=== PATIENT | male | born 1975 | race Caucasian/White ===

== ENCOUNTER 2021-05-03 13:59 | Emergency (ER) | payer OTHER ==
[~2021-05-03] VITALS: Ht 172.7 cm; Wt 113.6 kg
[2021-05-03 14:17] VITALS: BP 106/72
[2021-05-03] MEDS ORDERED: KETOROLAC 30 MG/ML VIAL IM ONE (14:35)
--- NOTE | 2021-05-03 14:47 | NUR ---
Cielo swab collected and sent back to lobby to wait for results.
[2021-05-03] MEDS ORDERED: NAPR-54 PO (15:19)
--- NOTE | 2021-05-03 15:20 | NUR ---
Charity ferris in ED - 05/03/21 at 1709 by [email or web address] NO NURSING INTERVENTIONS PROVIDED. PT SEEN AND DISCHARGED BY BETHEL EDE.
[2021-05-03 15:25] VITALS: BP 106/72
--- NOTE | 2021-05-03 15:25 | NUR ---
Patient discharged with v/s stable. Written and verbal after care instructions ABOUT MEDICATION AND TENSION HEADACHE given and explained. Patient alert, oriented and verbalized understanding of instructions. Ambulatory with steady gait. All questions addressed prior to discharge. ID band removed. Patient advised to follow up with PMD. Rx of NAPROXEN given. Patient educated on indication of medication including possible reaction and side effects. Opportunity to ask questions provided and answered.
== END 2021-05-03 15:25 | disposition home or self-care (01) ==
LOC: MED 13:59
DX: R51.9 Headache, unspecified (principal); Z20.822 Contact with and (suspected) exposure to COVID-19; Z79.899 Other long term (current) drug therapy
CPT/HCPCS: 87426; 96372; 99283; J1885

== ENCOUNTER 2022-11-19 10:14 | Emergency (ER) | payer OTHER ==
[~2022-11-19] VITALS: Ht 172.7 cm; Wt 89.4 kg
[~2022-11-19 10:14] MED LIST: NAPR-54 PO
[2022-11-19 10:20] VITALS: BP 141/64
--- NOTE | 2022-11-19 11:00 | NUR ---
47/M WALKED IN C/O BACK PAIN AFTER LIFTING HEAVY OBJECT 3 DAYS AGO. DENIES FALL. PT REPORTS 9/10 CONSTANT PAIN TO THE LOWER BACK. AAO4, AMBULATORY, VITALS STABLE. pmh: hld nka med: denies
[2022-11-19] MEDS ORDERED: methocarbamoL 500 MG TAB PO STA (11:49)
[2022-11-19] MEDS ORDERED: ACETAMINOPHEN 325 MG TAB PO ONE (11:50)
[2022-11-19] MEDS ORDERED: KETOROLAC 15 MG/ML VIAL IM ONE (11:50)
[2022-11-19] MEDS ORDERED: METH-1681 PO (12:51)
[2022-11-19] MEDS ORDERED: IBUP-2213 PO (12:51)
[2022-11-19] MEDS ORDERED: LID5T TP (12:51)
[2022-11-19] MEDS ORDERED: methocarbamoL 500 MG TAB ONE (13:01)
[2022-11-19] MEDS ORDERED: KETOROLAC 15 MG/ML VIAL ONE (13:02)
[2022-11-19] MEDS ORDERED: ACETAMINOPHEN 325 MG TAB ONE (13:04)
[2022-11-19 13:10] VITALS: BP 135/66
== END 2022-11-19 13:10 | disposition home or self-care (01) ==
LOC: MED 10:14
DX: S39.012A Strain of muscle, fascia and tendon of lower back, initial encounter (principal); E78.5 Hyperlipidemia, unspecified; F17.210 Nicotine dependence, cigarettes, uncomplicated; Z79.899 Other long term (current) drug therapy; X50.0XXA Overexertion from strenuous movement or load, initial encounter; Y93.89 Activity, other specified; Y92.89 Other specified places as the place of occurrence of the external cause; Y99.8 Other external cause status
CPT/HCPCS: 96372; 99283; J1885